=== PATIENT | female | born 1930 | race Caucasian/White ===

== ENCOUNTER → 2017-04-16 | Outpatient (CLI) | payer OTHER ==
[~2017-04-16] MED LIST: MULT-506 PO; TIMO0.2528
--- NOTE | 2017-04-16 15:45 | MAMMOGRAPHY REPORT ---
BILATERAL DIGITAL SCREENING MAMMOGRAM WITH CAD: 04/16/2017 CLINICAL HISTORY: Patient has no complaints. TECHNIQUE: Bilateral CC and MLO views were obtained. Current study was also evaluated with a Compute r Aided Detection (CAD) system. COMPARISON: Comparison is made to exams dated: 04/12/2016 mammogram, 04/11/2015 mammogram, 04/09/2014 m ammogram, 03/31/2013 mammogram, 12/05/2011 mammogram, and 11/30/2010 mammogram - [facility] enter. BREAST COMPOSITION: There are scattered areas of fibroglandular density in both breasts. FINDINGS: There are mild vascular calcifications in the breasts. Stable bilateral benign-appearing breast calcifications. No suspicious mass, architectural distortion or cluster of suspicious microcalcifications is seen. IMPRESSION: ACR BI-RADS CATEGORY 2: BENIGN There is no mammographic evidence of malignancy. A 1 year screening mammogram is recommended. The pa tient will receive written notification of the results. Approximately 10% of breast cancers are not detected with mammography. A negative mammographic report should not delay biopsy if a clinically suggestive mass is present. Margot Sotelo M.D. ay/:04/16/2017 15:00:49 Header Up: Reyna SANDOVAL(R)(M), [facility] letter sent: Normal 1/2 BI-RADS Code: ACR BI-RADS Category 2: Benign
== END | disposition home or self-care (01) ==
LOC: C.MAMM 13:36
PROVIDERS: ATTEND Internal Medicine
DX: Z12.31 Encounter for screening mammogram for malignant neoplasm of breast (principal)

== ENCOUNTER → 2017-05-13 | Outpatient (CLI) | payer OTHER ==
[2017-05-13 09:57] LABS: ALT/SGPT 32 U/L (12-78); BLOOD UREA NITROGEN 13 mg/dl (7-18); BUN/CREATININE RATIO 19.5 (10-20); CALCIUM 9.3 mg/dl (8.5-10.1); CARBON DIOXIDE 29 mmol/L (21-32); CHLORIDE 104 mmol/L (98-107); CREATININE 0.65 mg/dl (0.60-1.20); GLUCOSE 99 mg/dl (70-99); POTASSIUM 4.5 mmol/L (3.5-5.1); SODIUM 141 mmol/L (136-145)
[2017-05-13 10:00] LABS: ALB/GLOB RATIO 1.2 (0.9-2); ALKALINE PHOSPHATASE 77 U/L (45-117); AST/SGOT 22 U/L (15-37)
== END ==
LOC: C.LABFOXMH 09:09
PROVIDERS: ATTEND Internal Medicine
DX: I10 Essential (primary) hypertension (principal)

== ENCOUNTER → 2017-11-12 | Outpatient (CLI) | payer OTHER ==
[2017-11-12 10:05] LABS: ALBUMIN 3.6 gm/dl (3.4-5.0); ALT/SGPT 25 U/L (12-78); AST/SGOT 15 U/L (15-37); BLOOD UREA NITROGEN 13 mg/dl (7-18); CALCIUM 8.9 mg/dl (8.5-10.1); CARBON DIOXIDE 29 mmol/L (21-32); CREATININE 0.66 mg/dl (0.60-1.20); GLUCOSE 113 mg/dl (70-99); POTASSIUM 3.8 mmol/L (3.5-5.1); SODIUM 136 mmol/L (136-145)
[2017-11-12 10:15] LABS: ALKALINE PHOSPHATASE 73 U/L (45-117); TOTAL PROTEIN 7.6 gm/dl (6.4-8.2)
== END | disposition home or self-care (01) ==
LOC: C.LABFOXMH 09:03
PROVIDERS: ATTEND Internal Medicine
DX: E78.00 Pure hypercholesterolemia, unspecified (principal)

== ENCOUNTER 2022-03-25 17:53 | Observation (INO) ==
--- NOTE | 2022-03-25 19:08 | XRay Report ---
XR hand LT min 3V routine CLINICAL HISTORY: hand pain TECHNIQUE: 3 views of the left hand were obtained. Comparison: None available at the time of this dictation. FINDINGS: There is no evidence of an acute fracture. Degenerative changes are seen in the joints most prominent in the interphalangeal joints and first metacarpal phalangeal joint. No soft tissue abnormality is s een. IMPRESSION: Extensive osteoarthritic changes are seen. No acute fracture is seen. ACT 112: Negative or not required by law. Electronically signed by: Dario Browne M.D. 03/25/2022 7:07 PM
[2022-03-26] MEDS ORDERED: ACETAMINOPHEN 500 MG TAB PO STA (00:40)
[2022-03-26 01:19] LABS: Basophils # (auto) 0.05 K/uL (0-0.2); Basophils % (auto) 0.6 %; Eosinophils # (auto) 0.06 K/uL (0-0.50); Eosinophils % (auto) 0.7 %; Hematocrit (blood only) 40.6 % (34.1-44.9); Hemoglobin 13.3 g/dl (12.0-16.0); Immature Granulocytes # (auto) 0.04 K/uL (0.00-0.02); Immature Granulocytes % (auto) 0.5 %; Lymphocytes # (auto) 0.68 K/uL (1.2-3.4); Lymphocytes % (auto) 7.8 %; Mean Corpuscular Hemoglobin 32.3 pg (25.0-34.0); Mean Corpuscular Hgb Conc 32.8 g/dL (32.0-36.0); Mean Corpuscular Volume 98.5 fL (80.0-100.0); Mean Platelet Volume 10.8 fL (9.4-12.3); Monocytes # (auto) 0.67 K/uL (0.24-0.82); Monocytes % (auto) 7.6 %; Neutrophils # (auto) 7.26 K/uL (1.4-6.5); Neutrophils % (auto) 82.8 %; Platelet Count 210 K/uL (130-400); RDW Coefficient of Variation 14.5 % (11.5-14.5); RDW Standard Deviation 52.4 fL (36.4-46.3); Red Blood Count 4.12 M/uL (3.93-5.22); White Blood Count 8.76 K/ul (4.8-10.8)
[2022-03-26 01:45] LABS: Albumin Globulin Ratio 1.4 (0.9-2); Albumin Level 4.1 gm/dl (3.4-5.0); BUN Creatinine Ratio 36.5 (10-20); Bilirubin,Total 0.9 mg/dl (0.2-1.0); C Reactive Protein 1.99 mg/dl (0-0.5); Calcium 9.6 mg/dl (8.5-10.1); Creatinine Clr Calc Pharmacy 68.5 ml/min; Est GFR (African American) 98.2 ml/min; Est GFR (Non-African American) 84.7 ml/min; Globulin 2.9 gm/dl (2.5-4.0); Potassium 3.9 mmol/L (3.5-5.1)
[2022-03-26] MEDS ORDERED: VANCOMYCIN CONSULT ACTIVE PRN ×2 (03:01→06:02)
[2022-03-26] MEDS ORDERED: VANCOMYCIN HCL 1,500 MG in SODIUM CHLORIDE 0.9% 500 ML IV ONE (03:01)
[2022-03-26] MEDS ORDERED: cefTRIAXone SODIUM 2,000 MG/70 ML BAG IV STA (03:01)
--- NOTE | 2022-03-26 03:48 | History & Physical Report ---
Date of Service March 26, 2022 Assessment & Plan (1) Cellulitis of left hand: Plan: Left hand cellulitis/a sending lymphangitis/wrist pain- Underlying osteoarthritis Check a uric acid level Vancomycin IV and ceftriaxone IV as begun in the ED Consider orthopedic consult in the a.m. (2) Ascending lymphangitis: Plan: See above (3) Wrist pain: Plan: See above Patient is temporarily unable to use her left arm and hand due to severity of the pain Tylenol 650 mg p.o. every 6 hours as needed (4) Hypertension: Plan: Continue usual medications, except for briefly holding lisinopril and potassium chloride History of Present Illness Chief Complaint: The patient presents to the emergency department with complaint of left thumb and wrist pain that began 24 hours ago, and then over since that time has developed progressive erythema and warmth, with streaking extending up her left forearm while she was in the waiting room in the emergency department this evening Primary Care Provider: Trisha Horta The patient is a an 89-year-old female with a past medical history including hypertensive urgency, acute encephalopathy, hypertension, hypomagnesemia, hypocalcemia and hypokalemia. She presents to the emergency department as noted above. She reports having had a similar process happen with the left knee se veral months ago that required drainage and in physical therapy. She denies any recent changes in medications, recent travels, insect bites or traumas. Allergies Allergy/AdvReac Type Severity Reaction Status Date / Time No Known Allergies Unverified 04/04/18 15:34 Home Medications Medication Instructions Recorded Confirmed Type timolol maleate 0.25 % eye drops 1 drp ophthalmic (eye) DAILY 04/04/18 04/04/18 History (Timoptic) amlodipine 5 mg tablet (Norvasc) 10 mg PO QAM #30 tabs 04/21/18 Rx hydralazine 10 mg tablet 10 mg PO TID #30 tabs 04/21/18 Rx lisinopril 40 mg tablet (Zestril) 40 mg PO QAM #30 tabs 04/21/18 Rx metoprolol tartrate 100 mg tablet 100 mg PO BID #60 tabs 04/21/18 Rx potassium chloride 20 mEq 40 meq PO BID #60 tabs 04/21/18 Rx tablet,extended release(part/cryst) (Klor-Con M) spironolactone 25 mg tablet 50 mg PO QAM #60 tabs 04/21/18 Rx Past Med/Surg History Medical History (Updated 03/26/22 @ 03:46 by Wes Henderson MD) GERD (gastroesophageal reflux disease) Hypertension Medical history non-contributory Surgical History History of appendectomy History of hysterectomy Family History Other Family history non-contributory Social History Smoking Status: Never smoker Hx Alcohol Use: No Hx Substance Use: No Communication Ability: Effective Visual Impairment: Limited Hearing Ability: Normal [employer] Chief Required: No Beliefs That Will Affect Care: None marital status: Single Current Living Situation: Personal Care Facility Feels Safe at Home: Yes Assistive Devices: Walker Review of Systems Review of Systems: The patient denies chest pain, palpitations, shortness of breath, dyspnea on exertion, cough, lower extremity swelling, sore throat, fevers, chills, sweats, weight change, fatigue, nausea, vomiting, diarrhea , constipation, abdominal pain, pelvic pain, blood in urine or stool, dysuria, urinary frequency or urgency, lightheadedness, dizziness, headache, memory loss, loss of consciousness, imbalance, focal or generalized weakness, numbness or tingling in right arm or bilateral legs, generalized arthralgias or myalgias, back or neck pain, or night sweats. The review of systems is otherwise negative other than for that already noted above, and at least 10 systems have been reviewed. Physical Exam Physical Exam: The patient is awake, alert and oriented 3, well developed and well nourished, normocephalic and atraumatic, lying in bed and in no acute distress. HEENT--PERRL, EOMI, mucous membranes and oropharynx dry. Neck--supple. No JVD. No bruits. Thyroid normal, trachea midline, no adenopathy. Heart--normal S1 and S2. No murmurs, rubs or gallops. Lungs--clear bilaterally, no respiratory distress, no accessory muscle use. Abdomen--normal bowel sounds and soft. Nontender. Nondistended, no hernias or masses, no organomegaly. Extremities--no lower extremity edema Dermatologic--normal skin turgor, normal color, no abnormal lymph nodes, no rash. Neurologic--cranial nerves II through XII grossly intact. Rheumatologic--left wrist with swelling, tenderness, erythema extending from base of first MTP up dorsum of forearm Psychiatric--normal affect. Results & Data Results & Data ([facility]) Vital Signs (Past 12 Hours) Vital Signs Temp Pulse Pulse Resp BP BP Pulse Ox 03/26/22 03:00 84 18 171/86 H 98 03/26/22 01:20 83 16 182/86 H 97 03/25/22 18:10 36.8 C 87 17 151/81 H 97 O2 Del Method 03/26/22 03:00 Room Air 03/26/22 01:20 03/25/22 18:10 Room Air Laboratory Results Laboratory Results WBC 8.76 K/ul (4.8-10.8) 03/26/22 01:00 RBC 4.12 M/uL (3.93-5.22) 03/26/22 01:00 Hgb 13.3 g/dl (12.0-16.0) 03/26/22 01:00 Hct 40.6 % (34.1-44.9) 03/26/22 01:00 MCV 98.5 fL (80.0-100.0) 03/26/22 01:00 MCH 32.3 pg (25.0-34.0) 03/26/22 01:00 MCHC 32.8 g/dL (32.0-36.0) 03/26/22 01:00 RDW Std Deviation 52.4 fL (36.4-46.3) H 03/26/22 01:00 RDW Coeff of Reagan 14.5 % (11.5-14.5) 03/26/22 01:00 Plt Count 210 K/uL (130-400) 03/26/22 01:00 MPV 10.8 fL (9.4-12.3) 03/26/22 01:00 Immature Gran % (Auto) 0.5 % 03/26/22 01:00 Neut % (Auto) 82.8 % 03/26/22 01:00 Lymph % (Auto) 7.8 % 03/26/22 01:00 [place] % (Auto) 7.6 % 03/26/22 01:00 Eos % (Auto) 0.7 % 03/26/22 01:00 Baso % (Auto) 0.6 % 03/26/22 01:00 Neut # (Auto) 7.26 K/uL (1.4-6.5) H 03/26/22 01:00 Lymph # (Auto) 0.68 K/uL (1.2-3.4) L 03/26/22 01:00 [place] # (Auto) 0.67 K/uL (0.24-0.82) 03/26/22 01:00 Eos # (Auto) 0.06 K/uL (0-0.50) 03/26/22 01:00 Baso # (Auto) 0.05 K/uL (0-0.2) 03/26/22 01:00 Immature Gran # (Auto) 0.04 K/uL (0.00-0.02) H 03/26/22 01:00 ESR 51 mm/hr (0-30) H 03/26/22 01:00 Sodium 138 mmol/L (136-145) 03/26/22 01:00 Potassium 3.9 mmol/L (3.5-5.1) 03/26/22 01:00 Chloride 105 mmol/L (98-107) 03/26/22 01:00 Carbon Dioxide 25 mmol/L (21-32) 03/26/22 01:00 Anion Gap 8 (3-11) 03/26/22 01:00 BUN 19 mg/dl (6-23) 03/26/22 01:00 Creatinine 0.52 mg/dl (0.6-1.2) L 03/26/22 01:00 Est Cr Clr Drug Dosing 68.5 ml/min 03/26/22 01:00 Est GFR ( Amer) 98.2 ml/min 03/26/22 01:00 Est GFR (Non-Af Amer) 84.7 ml/min 03/26/22 01:00 BUN/Creatinine Ratio 36.5 (10-20) H 03/26/22 01:00 Glucose 112 mg/dl (70-99(Fasting)) H 03/26/22 01:00 Calcium 9.6 mg/dl (8.5-10.1) 03/26/22 01:00 Total Bilirubin 0.9 mg/dl (0.2-1.0) 03/26/22 01:00 AST 16 U/L (13-39) 03/26/22 01:00 ALT 17 U/L (7-52) 03/26/22 01:00 Alkaline Phosphatase 98 U/L (34-104) 03/26/22 01:00 C-Reactive Protein 1.99 mg/dl (0-0.5) H 03/26/22 01:00 Total Protein 7.0 gm/dl (6.0-8.3) 03/26/22 01:00 Albumin 4.1 gm/dl (3.4-5.0) 03/26/22 01:00 Globulin 2.9 gm/dl (2.5-4.0) 03/26/22 01:00 Albumin/Globulin Ratio 1.4 (0.9-2) 03/26/22 01:00 Procalcitonin < 0.05 ng/ml (0-0.5) 03/26/22 01:00 SARS-CoV-2, RNA, NAAT NEGATIVE (NEGATIVE) 03/26/22 03:12 Impressions Hand X-Ray 03/25/22 18:22 XR hand LT min 3V routine CLINICAL HISTORY: hand pain TECHNIQUE: 3 views of the left hand were obtained. Comparison: None available at the time of this dictation. FINDINGS: There is no evidence of an acute fracture. Degenerative changes are seen in the joints most prominent in the interphalangeal joints and first metacarpal phalangeal joint. No soft tissue abnormality is seen. IMPRESSION: Extensive osteoarthritic changes are seen. No acute fracture is seen. ACT 112: Negative or not required by law. Electronically signed by: Dario Browne M.D. 03/25/2022 7:07 PM Code Status & VTE Plan Code Status Full code VTE Prophylaxis Plan VTE Prophylaxis will be ordered: Yes PG Care Time/CCT Total # of Minutes Spent Total Time Spent with Patient: Total time spent is greater than 50% in coordination of care (as documented) at patient's floor/unit and/or counseling patient: Coding Level of Care Code INT OBSERVATION CARE 70M LVL 3 Diagnoses Cellulitis of left hand L03.114 Ascending lymphangitis I89.1 Wrist pain M25.539 Hypertension I10 Hypertension type: essential hypertension (1) Hypertension Hypertension type: essential hypertension Qualified Code(s): I10 - Essential (primary) hypertension
[2022-03-26] MEDS ORDERED: ONDANSETRON INJ 2 MG/ML 2 ML VIAL IV PRN (06:02)
[2022-03-26] MEDS ORDERED: ACETAMINOPHEN 325 MG TAB PO PRN (06:02)
[2022-03-26] MEDS ORDERED: VANCOMYCIN HCL 1,000 MG in SODIUM CHLORIDE 0.9% 500 ML IV SCH (06:02)
--- NOTE | 2022-03-26 07:25 | Emergency Department Note ---
Impression & Plan Cellulitis of hand, left, Ascending lymphangitis ED Provider Note CHIEF COMPLAINT: Left hand pain HISTORY OF PRESENT ILLNESS: Britney Lowry is an 89 year old female with history of HTN, GERD, osteoarthritis, among others who presents to the Emergency Department for evaluation of significant pain with development of swelling and redness to her left hand radiating into her wrist and up her forearm which has become progressively worse since last evening. She denies sustaining any recent injurie s or wounds to her extremity. Currently, she rates her discomfort as an 8/10 which worsens to palpation of the area and with movement of her fingers/wrist. She did attempt to use ice and took Aleve without improvement of her symptoms. Since arriving, she has noticed increased redness tracking up her hand and into her forearm which she did not notice before. It also feels warm to the touch. She otherwise denies fevers/chills, chest pain, respiratory difficulties, abdominal pain, nausea, vomiting, diarrhea or urinary symptoms. She denies having pain or swelling to any other joints. No other acute complaints. REVIEW OF SYSTEMS: 10 systems were reviewed and were negative unless otherwise stated in HPI as above PHYSICAL EXAM: VITALS: Vitals are noted on the nurse's note and reviewed by myself. Vital signs stable. General: Resting in bedside chair, no acute distress HEENT: Normocephalic, PERRL, EOMI, mucous membranes moist, oropharynx clear Neck: Supple, non-tender Resp: Good inspiratory effort on room air, lung sounds clear bilaterally CV: Regular rate and rhythm, normal S1-S2, peripheral pulses palpated Abd: Soft, non-tender MSK/Integumentary: With attention to the LUE, edema to the entire left hand/all digits, especially over the thumb, and wrist with erythema extending over the dorsal aspect of the hand with lymphangitic streaking into the wrist and forearm. Warm and extremely tender to palpation. ROM of the digits and wrist limited secondary to discomfort. Sensation and radial pulse intact, capillary refill <2 seconds. No other outward signs of trauma or skin changes, moving all other extremities without apparent pain or difficulty Neuro: Awake, alert and oriented x 3, interacting and answering questions appropriately Differential diagnosis includes musculoskeletal, gout, arthritis, cellulitis, abscess, MRSA infection, DVT, dermatitis, drug eruption, allergic reaction, as well as other pathologies. EMERGENCY DEPARTMENT COURSE: Physical exam and history were performed. Nursing triage notes, EMR, and medication list were personally reviewed. Patient is an 89 year old female with history of HTN, GERD, osteoarthritis, among others who presents to the Emergency Department for evaluation of significant pain with development of swelling and redness to her left hand radiating into her wrist and up her forearm which has become progressively worse since last evening. Additional history as described above. See physical exam as noted above. The patient was offered medication and was given Tylenol 1000 mg. IV access was established. Labs were obtained and reviewed by myself as below. Of note, no significant leukocytosis with a WBC of 8.76. No concern for anemia with hemoglobin 13.3. Electrolytes WNL. Renal indices stable. ESR was elevated at 51 and CRP elevated at 1.99. Procalcitonin not elevated at <0.05. X-rays of the left hand were obtained and reviewed by radiologist myself as below. There were extensive osteoarthritic changes, no acute fracture. Upon reevaluation, the patient was doing well. I discussed the results the above findings with her at bedside. The patient's exam findings and work-up appear to be consistent with cellulitis of the left hand with a sending lymphangitis. I do feel that she would benefit from continued care in the hospital for IV antibiotics. She was started on ceftriaxone and vancomycin. I did discuss the patient's case with Dr. Henderson of the [facility] physician group. He agreed to evaluate the patient for further management. Please see his dictation for additional plan and disposition thereafter. The patient verbalized understanding and agreement with the treatment plan as above. The chart was completed utilizing [employer] Voice Recognition Software. Grammatical errors, random word insertions, pronoun errors, and incomplete sentences are an occasional consequence of this system due to software limitations, ambient noise, and hardware issues. Any formal questions or concerns about the content, text, or information contained within the body of this dictation should be directly addressed to the provider for clarification. Past Med/Surg History Medical History (Updated 03/26/22 @ 08:20 by Brenna Calderón PA-C) GERD (gastroesophageal reflux disease) Hypertension Medical history non-contributory Surgical History History of appendectomy History of hysterectomy Family History Other Family history non-contributory Social History Smoking Status: Never smoker Hx Alcohol Use: No Hx Substance Use: No Communication Ability: Effective Visual Impairment: Limited Hearing Ability: Normal [employer] Required: No Beliefs That Will Affect Care: None marital status: Single Current Living Situation: Personal Care Facility Feels Safe at Home: Yes Assistive Devices: Walker Allergies Allergies Allergy/AdvReac Type Severity Reaction Status Date / Time No Known Allergies Unverified 04/04/18 15:34 Home Meds Home Medications Medication Instructions Recorded Confirmed timolol maleate 0.25 % eye drops 1 drp ophthalmic (eye) DAILY 04/04/18 04/04/18 (Timoptic) Previous Rx's Medication Instructions Recorded amlodipine 5 mg tablet (Norvasc) 10 mg PO QAM #30 tabs 04/21/18 hydralazine 10 mg tablet 10 mg PO TID #30 tabs 04/21/18 lisinopril 40 mg tablet (Zestril) 40 mg PO QAM #30 tabs 04/21/18 metoprolol tartrate 100 mg tablet 100 mg PO BID #60 tabs 04/21/18 potassium chloride 20 mEq 40 meq PO BID #60 tabs 04/21/18 tablet,extended release(part/cryst) (Klor-Con M) spironolactone 25 mg tablet 50 mg PO QAM #60 tabs 04/21/18 Results & Data (ED) Vital Signs Vital Signs - 24 hr 03/25/22 18:10 03/26/22 01:20 03/26/22 03:00 Temperature 36.8 C Temperature Source Temporal Artery Scan Pulse Rate 87 Pulse Rate [Finger] 83 84 Pulse Strength Normal Respiratory Rate 17 16 18 Respiratory Effort / Characteristics Non-Labored Spontaneous Non-Labored Respiratory Depth Normal Normal Respiratory Pattern Regular Regular Blood Pressure 151/81 H Blood Pressure [Right Arm] 182/86 H 171/86 H Blood Pressure Mean 104 Blood Pressure Mean [Right Arm] 118 114 Blood Pressure Position Sitting Blood Pressure Position [Right Arm] Lying Pulse Oximetry 97 97 98 Oxygen Delivery Method Room Air Room Air Sepsis Recent Fever Within 48 Hours No Sepsis New/Unexplained Change in Mental Status No Sepsis Action Taken by Nursing No Action Required Laboratory Data Result diagrams: 03/26/22 01:00 03/26/22 01:00 Lab Results 03/26/22 03/26/22 03/26/22 Range/Units 01:00 01:00 01:00 WBC 8.76 (4.8-10.8) K/ul RBC 4.12 (3.93-5.22) M/uL Hgb 13.3 (12.0-16.0) g/dl Hct 40.6 (34.1-44.9) % MCV 98.5 (80.0-100.0) fL MCH 32.3 (25.0-34.0) pg MCHC 32.8 (32.0-36.0) g/dL RDW Std Deviation 52.4 H (36.4-46.3) fL RDW Coeff of Reagan 14.5 (11.5-14.5) % Plt Count 210 (130-400) K/uL MPV 10.8 (9.4-12.3) fL Immature Gran % (Auto) 0.5 % Neut % (Auto) 82.8 % Lymph % (Auto) 7.8 % [place] % (Auto) 7.6 % Eos % (Auto) 0.7 % Baso % (Auto) 0.6 % Neut # (Auto) 7.26 H (1.4-6.5) K/uL Lymph # (Auto) 0.68 L (1.2-3.4) K/uL [place] # (Auto) 0.67 (0.24-0.82) K/uL Eos # (Auto) 0.06 (0-0.50) K/uL Baso # (Auto) 0.05 (0-0.2) K/uL Immature Gran # (Auto) 0.04 H (0.00-0.02) K/uL ESR 51 H (0-30) mm/hr Sodium 138 (136-145) mmol/L Potassium 3.9 (3.5-5.1) mmol/L Chloride 105 (98-107) mmol/L Carbon Dioxide 25 (21-32) mmol/L Anion Gap 8 (3-11) BUN 19 (6-23) mg/dl Creatinine 0.52 L (0.6-1.2) mg/dl Est Cr Clr Drug Dosing 68.5 ml/min Est GFR ( Amer) 98.2 ml/min Est GFR (Non-Af Amer) 84.7 ml/min BUN/Creatinine Ratio 36.5 H (10-20) Glucose 112 H (70-99(Fasting)) mg/dl Uric Acid (2.6-7.2) mg/dl Calcium 9.6 (8.5-10.1) mg/dl Total Bilirubin 0.9 (0.2-1.0) mg/dl AST 16 (13-39) U/L ALT 17 (7-52) U/L Alkaline Phosphatase 98 (34-104) U/L C-Reactive Protein 1.99 H (0-0.5) mg/dl Total Protein 7.0 (6.0-8.3) gm/dl Albumin 4.1 (3.4-5.0) gm/dl Globulin 2.9 (2.5-4.0) gm/dl Albumin/Globulin Ratio 1.4 (0.9-2) Procalcitonin (0-0.5) ng/ml 03/26/22 03/26/22 Range/Units 01:00 01:00 WBC (4.8-10.8) K/ul RBC (3.93-5.22) M/uL Hgb (12.0-16.0) g/dl Hct (34.1-44.9) % MCV (80.0-100.0) fL MCH (25.0-34.0) pg MCHC (32.0-36.0) g/dL RDW Std Deviation (36.4-46.3) fL RDW Coeff of Reagan (11.5-14.5) % Plt Count (130-400) K/uL MPV (9.4-12.3) fL Immature Gran % (Auto) % Neut % (Auto) % Lymph % (Auto) % [place] % (Auto) % Eos % (Auto) % Baso % (Auto) % Neut # (Auto) (1.4-6.5) K/uL Lymph # (Auto) (1.2-3.4) K/uL Ellis # (Auto) (0.24-0.82) K/uL Eos # (Auto) (0-0.50) K/uL Baso # (Auto) (0-0.2) K/uL Immature Gran # (Auto) (0.00-0.02) K/uL ESR (0-30) mm/hr Sodium (136-145) mmol/L Potassium (3.5-5.1) mmol/L Chloride (98-107) mmol/L Carbon Dioxide (21-32) mmol/L Anion Gap (3-11) BUN (6-23) mg/dl Creatinine (0.6-1.2) mg/dl Est Cr Clr Drug Dosing ml/min Est GFR ( Amer) ml/min Est GFR (Non-Af Amer) ml/min BUN/Creatinine Ratio (10-20) Glucose (70-99(Fasting)) mg/dl Uric Acid 4.1 (2.6-7.2) mg/dl Calcium (8.5-10.1) mg/dl Total Bilirubin (0.2-1.0) mg/dl AST (13-39) U/L ALT (7-52) U/L Alkaline Phosphatase (34-104) U/L C-Reactive Protein (0-0.5) mg/dl Total Protein (6.0-8.3) gm/dl Albumin (3.4-5.0) gm/dl Globulin (2.5-4.0) gm/dl Albumin/Globulin Ratio (0.9-2) Procalcitonin < 0.05 (0-0.5) ng/ml Administered Medications Discontinued Medications Acetaminophen (Acetaminophen 500 Mg Tab) 1,000 mg PO NOW STA Stop: 03/26/22 00:41 Last Admin: 03/26/22 00:50 Dose: 1,000 mg Documented By: LANE Vancomycin HCl 1,500 mg/ (Sodium Chloride) 530 mls @ 200 mls/hr IV NOW ONE Stop: 03/26/22 05:39 Last Admin: 03/26/22 05:03 Dose: 200 mls/hr Documented By: BUDDY Ceftriaxone Sodium (Rocephin) 2,000 mg in 70 mls @ 140 mls/hr IV NOW STA Stop: 03/26/22 03:30 Last Infusion: 03/26/22 04:40 Dose: 0 mls/hr Documented By: Admin: 03/26/22 04:09 Dose: 140 mls/hr Documented By: ASW Imaging Data Radiologist's Impression: Hand X-Ray 03/25/22 18:22 XR hand LT min 3V routine CLINICAL HISTORY: hand pain TECHNIQUE: 3 views of the left hand were obtained. Comparison: None available at the time of this dictation. FINDINGS: There is no evidence of an acute fracture. Degenerative changes are seen in the joints most prominent in the interphalangeal joints and first metacarpal phalangeal joint. No soft tissue abnormality is seen. IMPRESSION: Extensive osteoarthritic changes are seen. No acute fracture is seen. ACT 112: Negative or not required by law. Electronically signed by: Dario Browne M.D. 03/25/2022 7:07 PM Discharge Plan Visit Data Chief Complaint: Hand Injury/Pain Stated Complaint: L HAND SWOLLEN, HAND PAIN ED Provider: Gwen Baeza ED Midlevel Provider: Brenna Calderón Discharge Problem: Cellulitis of hand, left, Ascending lymphangitis Patient Disposition: Admitted As Inpatient Discharge Instructions Interventions: ED Discharge Assessment Last Done: 03/26/22 06:03
[2022-03-26] MEDS: amLODIPine BESYLATE 5 MG TAB PO SCH (08:57)
[2022-03-26] MEDS: METOPROLOL TARTRATE 100 MG TAB PO SCH ×2 (08:58→22:13)
[2022-03-26] MEDS: TIMOLOL GFS 0.5% OPH SOLN 74 DROPS/5 ML BTL OP SCH (08:58)
[2022-03-26] MEDS: hydrALAZINE 10 MG TAB PO SCH ×3 (08:58→20:47)
[2022-03-26] MEDS: SPIRONOLACTONE 25 MG TAB PO SCH (08:58)
--- NOTE | 2022-03-26 10:57 | Pharmacy Report ---
Pharmacy PK ABX Note - Date of Service March 26, 2022 - Assessment and Plan Assessment * Ms Lowry is an 89 year old F receiving vancomycin/ceftriaxone for treatment of L hand cellulitis. * Pertinent microbiologic data includes: blood cultures pending * Pt presented w/ L thumb/wrist pain with progressive erythema and warmth. While waiting in the ED, streaking extended up her L forearm. * Pt has been afebrile. WBC, PCT unremarkable. Plan Vancomycin * Loading dose: 1500 mg IV x 1 * Maintenance dose: 750 mg IV every 12 hours * Regimen is predicted to achieve target AUC/ELIZABETH of 400-600 mg/L.hr * Trough level ordered for tomorrow, prior to the 3rd maintenance dose (this will not yet be steady-state). Ceftriaxone 1gm IV q24h Pharmacy will continue to follow and will adjust dose/frequency as necessary. Thank you. Pharmacy has transitioned to AUC monitoring for vancomycin. AUC/ELIZABETH is the preferred PK/PD target and is associated with decreased risk of nephrotoxicity compared to traditional trough targets.
[2022-03-26] MEDS: VANCOMYCIN HCL 750 MG in SODIUM CHLORIDE 0.9% 250 ML IV SCH (11:59)
[2022-03-27] MEDS: VANCOMYCIN HCL 750 MG in SODIUM CHLORIDE 0.9% 250 ML IV SCH (00:56)
[2022-03-27] MEDS ORDERED: cefTRIAXone SODIUM 1,000 MG in DEXTROSE 5% 50 ML IV SCH (04:00)
[2022-03-27 08:35] LABS: Hematocrit (blood only) 39.5 % (34.1-44.9); Hemoglobin 12.9 g/dl (12.0-16.0); Mean Corpuscular Hemoglobin 32.3 pg (25.0-34.0); Mean Corpuscular Hgb Conc 32.7 g/dL (32.0-36.0); Mean Corpuscular Volume 98.8 fL (80.0-100.0); Mean Platelet Volume 11.1 fL (9.4-12.3); Platelet Count 201 K/uL (130-400); RDW Coefficient of Variation 14.4 % (11.5-14.5); RDW Standard Deviation 52.3 fL (36.4-46.3)
[2022-03-27 09:15] LABS: BUN Creatinine Ratio 18.6 (10-20); Calcium 9.2 mg/dl (8.5-10.1); Creatinine Clr Calc Pharmacy 60.5 ml/min; Est GFR (African American) 94.2 ml/min; Est GFR (Non-African American) 81.3 ml/min; Magnesium 1.8 mg/dl (1.7-2.4); Potassium 3.6 mmol/L (3.5-5.1)
[2022-03-27] MEDS: METOPROLOL TARTRATE 100 MG TAB PO SCH ×2 (09:15→20:19)
[2022-03-27] MEDS: hydrALAZINE 10 MG TAB PO SCH ×3 (09:16→20:17)
[2022-03-27] MEDS: SPIRONOLACTONE 25 MG TAB PO SCH (09:16)
[2022-03-27] MEDS: amLODIPine BESYLATE 5 MG TAB PO SCH (09:17)
[2022-03-27] MEDS: TIMOLOL GFS 0.5% OPH SOLN 74 DROPS/5 ML BTL OP SCH (09:57)
[2022-03-27] MEDS ORDERED: VANCOMYCIN LEVEL ONE (11:00)
[2022-03-27] MEDS ORDERED: KETOROLAC TROMETHAMINE 15 MG/ML VIAL IV ONE (11:31)
--- NOTE | 2022-03-27 11:40 | Hospitalist Progress Note ---
Date of Service March 27, 2022 Assessment & Plan (1) Cellulitis of left hand: Plan: POSSIBLE left hand cellulitis though not clear to me. No real erythema. Limited ROM, but on passive ROM, really not a lot of pain until significant extension. Left hand x-ray on admission with significant osteoarthritis. - Uric acid normal - Stop vancomycin and ceftriaxone - Discussed with orthopedic PA who also feels it may likely be flare up of OA. Started NSAID (will monitor Cr) and will monitor response. Added ice. If improved, can discharge home tomorrow. If no improvement, will restart abx, and consult orthopedics. (2) Hypertension: Plan: BP is 150/75 in the hospital. - Continue usual medications (3) DVT prophylaxis: Plan: Heparin 5,000 units SQ Q12h Admission and Anticipated Discharge Date Admission Date: March 26, 2022 Subjective Does not feel there is substantial change today. Still sore with limited ROM. Erythema maybe slightly better. Physical Exam Constitutional: WD/WN, vitals as above Eyes: EOM intact bilaterally; no conjunctival abnormality ENMT: external ear and nose normal, oropharynx normal Neck: trachea midline, no thyromegaly normal visual inspection Respiratory: normal respiratory effort, lungs clear to auscultation no respiratory distress Cardiovascular: RRR, no murmur, no edema Gastrointestinal (Abdomen): Inspection/Auscultation: abdomen normal to inspection; abdomen not distended Musculoskeletal: no cyanosis or clubbing, extremities motor strength 5/5 Left thumb with predominant soreness in base of thumb. Skin: no rashes, warm and dry Neurologic: moves all extremities and awake Psychiatric: Orientation: alert, oriented to person and cooperative Results & Data Results & Data ([facility]) Vital Signs (Past 12 Hours) Vital Signs Temp Pulse Resp BP Pulse Ox O2 Del Method 03/27/22 07:34 36.7 C 72 16 150/76 H 98 Room Air PG Care Time/CCT Total # of Minutes Spent Total Time Spent with Patient: Total time spent is greater than 50% in coordination of care (as documented) at patient's floor/unit and/or counseling patient: Coding Level of Care Code 27640 Subseq Hosp Care Lvl 2 Diagnoses Cellulitis of left hand L03.114 Hypertension I10 Hypertension type: essential hypertension DVT prophylaxis Z29.9 (1) Hypertension Hypertension type: essential hypertension Qualified Code(s): I10 - Essential (primary) hypertension
[2022-03-27] MEDS: IBUPROFEN 200 MG TAB PO SCH (20:16)
[2022-03-28 07:27] LABS: Basophils # (auto) 0.05 K/uL (0-0.2); Basophils % (auto) 0.9 %; Eosinophils % (auto) 5.5 %; Hematocrit (blood only) 34.7 % (34.1-44.9); Hemoglobin 11.6 g/dl (12.0-16.0); Immature Granulocytes # (auto) 0.03 K/uL (0.00-0.02); Immature Granulocytes % (auto) 0.5 %; Lymphocytes # (auto) 0.56 K/uL (1.2-3.4); Lymphocytes % (auto) 10.3 %; Mean Corpuscular Hgb Conc 33.4 g/dL (32.0-36.0); Mean Corpuscular Volume 98.9 fL (80.0-100.0); Mean Platelet Volume 10.8 fL (9.4-12.3); Monocytes # (auto) 0.53 K/uL (0.24-0.82); Monocytes % (auto) 9.7 %; Neutrophils # (auto) 3.99 K/uL (1.4-6.5); Neutrophils % (auto) 73.1 %; Platelet Count 186 K/uL (130-400); RDW Coefficient of Variation 14.4 % (11.5-14.5); Red Blood Count 3.51 M/uL (3.93-5.22); White Blood Count 5.46 K/ul (4.8-10.8)
[2022-03-28 07:47] LABS: BUN Creatinine Ratio 28.3 (10-20); Calcium 8.8 mg/dl (8.5-10.1); Creatinine Clr Calc Pharmacy 67.4 ml/min; Est GFR (African American) 97.6 ml/min; Est GFR (Non-African American) 84.2 ml/min; Magnesium 1.7 mg/dl (1.7-2.4); Potassium 3.7 mmol/L (3.5-5.1)
[2022-03-28] MEDS: TIMOLOL GFS 0.5% OPH SOLN 74 DROPS/5 ML BTL OP SCH (09:09)
[2022-03-28] MEDS: IBUPROFEN 200 MG TAB PO SCH (09:13)
[2022-03-28] MEDS: amLODIPine BESYLATE 5 MG TAB PO SCH (10:28)
[2022-03-28] MEDS: SPIRONOLACTONE 25 MG TAB PO SCH (10:29)
[2022-03-28] MEDS: METOPROLOL TARTRATE 100 MG TAB PO SCH (10:29)
[2022-03-28] MEDS: hydrALAZINE 10 MG TAB PO SCH (10:29)
--- NOTE | 2022-03-28 17:22 | Discharge Summary ---
Date of Service March 28, 2022 Admission HPI Per Admitting Provider The patient is a an 89-year-old female with a past medical history including hypertensive urgency, acute encephalopathy, hypertension, hypomagnesemia, hypocalcemia and hypokalemia. She presents to the emergency department as noted above. She reports having had a similar process happen with the left knee several months ago that required drainage and in physical therapy. She denies any recent changes in medications, recent travels, insect bites or traumas. Principal Diagnosis Osteoarthritis of left thumb Discharge Exam Constitutional WD/WN, vitals as above Eyes EOM intact bilaterally; no conjunctival abnormality ENMT external ear and nose normal, oropharynx normal Neck trachea midline, no thyromegaly normal visual inspection Respiratory normal respiratory effort, lungs clear to auscultation no respiratory distress Cardiovascular RRR, no murmur, no edema Gastrointestinal (Abdomen) Inspection/Auscultation: abdomen normal to inspection; abdomen not distended Musculoskeletal no cyanosis or clubbing, extremities motor strength 5/5 Skin no rashes, warm and dry Neurologic moves all extremities and awake Psychiatric Orientation: alert, oriented to person and cooperative Discharge Data Allergies Allergy/AdvReac Type Severity Reaction Status Date / Time No Known Allergies Unverified 04/04/18 15:34 Consultations 03/26/22 03:01 ED Decision to Admit Stat Hospital Course (1) Osteoarthritis: Initially thought to be left hand cellulitis. No real erythema. Limited ROM, but on passive ROM, really not a lot of pain until significant extension. Left hand x-ray on admission with significant osteoarthritis. - Uric acid normal - Started vancomycin and ceftriaxone on admission. This was held on 03/27. Toradol given instead. Substantial improvement by 03/28. Redness, pain, and swelling all improved off abx. - Discussed with orthopedic PA who reviewed x-rays and also felt it was likely be flare up of OA. Discharged on ibuprofen for 3-4 days. Can then switch to occasional Voltaren gel. Encouraged not to use both. Patient signed out to [facility] medical team. (2) Hypertension: BP is 150/75 in the hospital. - Due to medication reconciliation error, she was actually given multiple BP meds by mistake that she was not on. - Discharged back on home lisinopril. (3) DVT prophylaxis: Heparin 5,000 units SQ Q12h Total Time Total Time Spent Total Time Spent (In Minutes): 35 Discharge Plan Discharge Items Patient Disposition: Home - Self-Care Reason For Visit: LEFT THUMB CELLULITIS WITH ASCENDING LYMPHANGITIS Discharge Diagnosis: Left thumb osteoarthritis with a flare-up Activity: Resume your previous activity Non-emergency contact: Primary Care Provider and Surgeon Call non-emergency contact if: your symptoms worsen Follow-up/Referrals: Trisha Horta [Primary Care Provider] - Diet: Heart Healthy Addtl Attending Provider Instructions: Ms. Lowry, Kelby were admitted to the hospital with left thumb pain and swelling. This was initially concerning for an infection; however, we *DO NOT* think it is i nfected. The x-rays showed severe osteoarthritis in the base of the left thumb. You were initially on antibiotics, but we stopped those and started a medication that helps with inflammation called Toradol. One dose helped subsantially, and we are sending you home with 3 days of ibuprofen. We did discuss this with the team at [facility]. We will also send you home with a gel that can be used. Please do not use both, but using one or the other is fine. Please follow up with [facility] if the thumb does not improve over 2-3 more days. Pending Studies at Discharge: No Stand-Alone Forms: My [facility] [email or web address], Smoking Cessation Medications and DC Order Prescriptions: New ibuprofen 400 mg tablet 400 mg PO TID Qty: 9 0RF diclofenac sodium 3 % gel 1 applic topical TID PRN (Reason: pain) Qty: 100 0RF Rx Instructions: Use on left thumb area or left knee as needed for osteoarthritis pain. Do not use when also taking oral NSAID medication. Continued timolol maleate [Timoptic] 0.25 % drops 1 drp ophthalmic (eye) DAILY lisinopril 10 mg tablet 10 mg QAM Discharge Orders: Discharge Order (Routine); Ordered 03/28/22 Ordered By: Rosendo Jorgensen Admission Data Admit Date/Time: 03/26/22 03:08 Attending Provider: Rosendo Jorgensen Admit Provider: Wes Henderson Primary Care Provider: Trisha Horta Other Providers: Wes Henderson Other Interventions: Discharge Summary Assessment (RN) Last Done: 03/28/22 12:22 Coding Level of Care Code 57302 OBS Care - Discharge Diagnoses Osteoarthritis M19.90 Hypertension I10 Hypertension type: essential hypertension DVT prophylaxis Z29.9
== END 2022-03-28 13:40 | disposition home or self-care (01) ==
LOC: ED 17:53 → EDINP 17:53 → SUATTDRO 03-26 03:08 → 3E 03-26 06:03